=== PATIENT | female | born 2000 | race Caucasian/White ===

== ENCOUNTER 2021-10-01 08:14 | Emergency (ER) | payer OTHER ==
[~2021-10-01 08:14] MED LIST: BENTYL 20MG TAB20 MG PO; COLACE 100MG C100 MG PO; IBUPROFEN600 MG PO; KEFLEX CAP 500500 MG PO; PRENATAL VITAM1 EAC8 PO; VISTARIL25 MG PO; ZOFRAN ODT 4 MG4 MG SL
[2021-10-01 09:36] LABS: HEMOGLOBIN 13.4 gm/dl (12.3-15.3); RED BLOOD COUNT 4.02 M/UL (4.00-5.10); WHITE BLOOD COUNT 8.7 K/UL (4.5-11.0)
[2021-10-01 09:56] LABS: BUN/CREATININE RATIO 8 (0-10)
== END 2021-10-01 13:50 | disposition home or self-care (01) ==
LOC: ER1 08:14
PROVIDERS: Nurse Practitioner
DX: O20.9 Hemorrhage in early pregnancy, unspecified (principal); O10.911 Unspecified pre-existing hypertension complicating pregnancy, first trimester; Z79.899 Other long term (current) drug therapy; Z3A.12 12 weeks gestation of pregnancy
CPT/HCPCS: 76801; 80048; 84702; 85025; 86900; 86901; 99284